=== PATIENT | male | born 1970 | race Caucasian/White ===

== ENCOUNTER 2017-05-31 12:49 | Inpatient (IN) | payer OTHER ==
[~2017-05-31] VITALS: Ht 177.8 cm; Wt 94.0 kg
[2017-05-31] VITALS (7 sets, daily range): BP systolic 140–146; BP diastolic 88–95; PULSE 62–92; RESP 18–25; TEMP 98.6; O2SAT 70–100
[~2017-05-31 12:49] MED LIST: DARV PO; PENI500T PO; Z.0.NO CURRENT MEDS
[2017-05-31] MEDS ORDERED: MORPHINE SULFATE 8 MG/ML INJ IV PUSH ONE ×2 (13:15→16:00)
[2017-05-31] MEDS ORDERED: ONDANSETRON HCL 4 MG/2 ML VIAL IV PUSH ONE (13:15)
--- NOTE | 2017-05-31 14:21 | RADRPT ---
EXAM DATE/TIME: 05/31/2017 14:00 [facility] COMPARISON: No previous studies available for comparison. INDICATIONS : Hit by tree limb and fell 13 feet today, pain in left shoulder, neck and back MEDICAL HISTORY : None. SURGICAL HISTORY : None. ENCOUNTER: Initial ACUITY: 1 day PAIN SCORE: 10/10 LOCATION: Left shoulder FINDINGS: Two view examination of the left shoulder demonstrates no evidence of fracture or dislocation. The g lenohumeral joint is maintained. A.c. separation and soft tissue swelling. Bony mineralization is no rmal. CONCLUSION: Soft tissue swelling with a.c. separation. Karson Watkins MD on May 31, 2017 at 14:20 Board Certified Radiologist. This report was verified electronically.
--- NOTE | 2017-05-31 15:49 | RADRPT ---
EXAM DATE/TIME: 05/31/2017 15:01 [facility] COMPARISON: No previous studies available for comparison. INDICATIONS : Back pain after trauma. MEDICAL HISTORY : None. SURGICAL HISTORY : Appendectomy. Colon resection. Right shoulder. ENCOUNTER: Subsequent ACUITY: 1 day PAIN SCORE: 6/10 LOCATION: Thoracic spine. TECHNIQUE: Multiplanar multisequence MRI of the thoracic spine was performed. FINDINGS: VERTEBRA: There is a subtle mild compression fracture deformity of the T9 vertebral body with slight height los s and patchy marrow edema. There is patchy marrow edema also noted in the T12 vertebral body which de monstrates normal vertebral body height. The other vertebral bodies are intact. There is no retropuls ion. ALIGNMENT: Normal. CORD: Normal position and configuration. T1-T2: The thecal sac has a normal diameter. No evidence of disc bulge or protrusion. T2-T3: The thecal sac has a normal diameter. No evidence of disc bulge or protrusion. There is edema involv ing the posterior left third rib with adjacent edema in the paraspinous soft tissue muscles. A small amount of pleural fluid. T3-T4: The thecal sac has a normal diameter. No evidence of disc bulge or protrusion. T4-T5: The thecal sac has a normal diameter. No evidence of disc bulge or protrusion. There is edema involv ing the posterior left fifth rib with adjacent edema in the paraspinous musculature. Small amount of adjacent pleural fluid. T5-T6: The thecal sac has a normal diameter. No evidence of disc bulge or protrusion. T6-T7: The thecal sac has a normal diameter. No evidence of disc bulge or protrusion. T7-T8: The thecal sac has a normal diameter. No evidence of disc bulge or protrusion. There is edema in the left posterior eighth rib. T8-T9: The thecal sac has a normal diameter. No evidence of disc bulge or protrusion. Diffuse patchy marrow edema is noted with distortion of the trabecular pattern. There is surrounding paraspinous soft tiss ue swelling. There is a fracture deformity with edema and fluid involving the left posterior ninth ri b. T9-T10: The thecal sac has a normal diameter. No evidence of disc bulge or protrusion. T10-T11: The thecal sac has a normal diameter. No evidence of disc bulge or protrusion. T11-T12: The thecal sac has a normal diameter. No evidence of disc bulge or protrusion. There is subtle marro w edema in the T12 vertebral body with no trabecular distortion or paraspinous soft tissue swelling. T12-L1: The thecal sac has a normal diameter. No evidence of disc bulge or protrusion. CONCLUSION: 1. Mild compression fracture deformity of the T9 vertebral body with trabecular distortion and diffus e patchy marrow edema. There is paraspinous soft tissue swelling. There is no definite retropulsion. Fracture of the posterior left, and ninth ribs with edema. 2. Subtle fracture deformity involving the T12 vertebral body with subtle marrow edema no cortical di stortion or paraspinous soft tissue swelling. 3. Multiple apparent left posterior rib fractures involving the third, fifth and eighth ribs with flip ma in the ribs and edema in the adjacent soft tissue musculature. A chest CT is recommended for furth er evaluation. Small amount of left pleural fluid. Kadeem Villanueva MD on May 31, 2017 at 15:35 Board Certified Radiologist. This report was verified electronically.
--- NOTE | 2017-05-31 15:58 | RADRPT ---
EXAM DATE/TIME: 05/31/2017 15:01 [facility] COMPARISON: No previous studies available for comparison. INDICATIONS : Trauma. MEDICAL HISTORY : None. SURGICAL HISTORY : Appendectomy. Colon resection. Right shoulder. ENCOUNTER: Subsequent ACUITY: 1 day PAIN SCORE: 6/10 LOCATION: neck TECHNIQUE: Multiplanar, multisequence MRI examination of the cervical spine was performed. FINDINGS: VERTEBRAE: Normal vertebral body height. Homogeneous marrow signal, with the exception of some chronic endplate changes at C5-6. Mild degenerative changes C5-6 and C6-7 levels. ALIGNMENT: No evidence of subluxation. CORD: Normal configuration and signal. POST FOSSA: The cerebellar tonsils are normal in position. C2-C3: The thecal sac has a normal configuration. There is no evidence of disc herniation or spinal canal s tenosis. The neural foramina are patent bilaterally. C3-C4: The thecal sac has a normal configuration. There is no evidence of disc herniation or spinal canal s tenosis. The neural foramina are patent bilaterally. C4-C5: The thecal sac has a normal configuration. There is no evidence of disc herniation or spinal canal s tenosis. The neural foramina are patent bilaterally. C5-C6: Mild broad-based disc bulge abuts the thecal sac without spinal canal stenosis. The neural foramina are patent bilaterally. C6-C7: Mild broad-based disc bulge abuts the thecal sac without spinal canal stenosis. The neural foramina are patent bilaterally. C7-T1: The thecal sac has a normal configuration. There is no evidence of disc herniation or spinal canal s tenosis. The neural foramina are patent bilaterally. CONCLUSION: 1. Mild disc bulges at C5-6 and C6-7 levels. 2. No compression deformity or spondylolisthesis. 3. Mild degenerative changes C5-6 and C6-7 levels. Karson Watkins MD on May 31, 2017 at 15:55 Board Certified Radiologist. This report was verified electronically.
--- NOTE | 2017-05-31 16:03 | PD ---
HPI Chief Complaint: Fall Time Seen by Provider: 13:07 Travel History International Travel<30 days: No Contact w/Intl Traveler<30days: No Traveled to known affect area: No History of Present Illness HPI This is a 46-year-old male who was sent here from [facility] as a trauma transfer. Patient was reportedly up on a elevated bucket truck cutting trees when he fell roughly 15 feet to the ground. He presented to [facility]. Upon workup, they found that he had left transverse process fractures of C7, T1, T2. He also had a small left-sided pneumothorax. Patient also had evidence of a T10 compression fracture and a left lateral flank/ abdominal wall contusion. There is no reported intra-abdominal pathology. There is no reported intrathoracic pathology other than the pneumothorax. Patient CT head showed questionable nondisplaced left zygomatic arch fracture. The patient denies any numbness or tingling of his extremities. He denies any weakness. He denies any urinary incontinence. PFS Past Medical History Medical History: Denies Significant Hx Diminished Hearing: No Past Surgical History Abdominal Surgery: Yes (LOWER COLON) Appendectomy: Yes Other Surgery: Yes (PART OF LOWER COLON AND INTESTINE REMOVED ) Social History Alcohol Use: Yes (6 BEERS A WEEK) Tobacco Use: Yes (1PPD) Substance Use: No Allergies-Medications (Allergen,Severity, Reaction): Coded Allergies: No Known Allergies (Verified Allergy, Unknown, 05/31/17) Reported Meds & Prescriptions Reported Meds & Active Scripts Active No Active Prescriptions or Reported Medications Review of Systems Except as stated in HPI: all other systems reviewed are Neg Eyes: No: Blurred Vision, Photophobia HENT: Positive: Neck Pain (Left lateral), Other (Left-sided cheek pain.), No: Headaches Cardiovascular: Positive: Chest Pain or Discomfort, No: Palpitations (Left upper chest wall pain) Respiratory: No: Cough, Shortness of Breath Gastrointestinal: No: Nausea, Vomiting, Abdominal Pain Genitourinary: No: Incontinence, Pelvic Pain Musculoskeletal: Positive: Pain (Left upper shoulder/lateral neck pain), No: Limited ROM, Weakness Neurologic: No: Dizziness, Headache Physical Exam Narrative GENERAL: Well-developed well-nourished male in C-spine immobilization. SKIN: Focused skin assessment warm/dry. HEAD: Atraumatic. Normocephalic. Abrasion to the left cheek. EYES: Pupils equal and round. No scleral icterus. No injection or drainage. ENT: No nasal bleeding or discharge. Mucous membranes pink and moist. NECK: Trachea midline. In c-collar mobilization. CARDIOVASCULAR: Regular rate and rhythm. No murmur appreciated. RESPIRATORY: No accessory muscle use. Clear to auscultation. Breath sounds equal bilaterally. GASTROINTESTINAL: Abdomen soft, nondistended. Patient had no pain on palpation. MUSCULOSKELETAL: No obvious deformities. No clubbing. No cyanosis. No edema. Patient has subjective tenderness in his superior left shoulder with radiation to his left lateral neck along the trapezius muscle distribution. NEUROLOGICAL: Awake and alert. No obvious cranial nerve deficits. Motor grossly within normal limits. Normal speech. PSYCHIATRIC: Appropriate mood and affect; insight and judgment normal. Data Data Last Documented VS Vital Signs Date Time Temp Pulse Resp B/P (MAP) Pulse Ox O2 Delivery O2 Flow Rate FiO2 05/31/17 13:17 66 18 94 Room Air 05/31/17 13:14 143/90 (107) Orders Orders Morphine Inj (Morphine Inj) (05/31/17 13:15) Ondansetron Inj (Zofran Inj) (05/31/17 13:15) Mri C Spine W/O Contrast (05/31/17 13:13) Mri T Spine W/O Contrast (05/31/17 13:13) Shoulder, Limited(2vws) (05/31/17 13:13) Admit Order (Ed Use Only) (05/31/17 15:54) Morphine Inj (Morphine Inj) (05/31/17 16:00) MDM Medical Screen Exam Complete: Yes Emergency Medical Condition: Yes Differential Diagnosis Unstable T-spine fracture versus unstable cervical spine fracture versus worsening pneumothorax Narrative Course 46-year-old male as a trauma transfer from [facility] and. Patient was in a bucket truck where he fell 10-15 feet on his side. Patient had no loss conscious. Patient has a reported left zygomatic arch nondisplaced fracture. Patient also has left C7, T1, T2 transverse process fractures. There is also report of T-spine fractures. MRI here shows T9 compression fracture with marrow edema. Also shows T12 compression fracture with marrow edema. There are multiple left-sided rib fractures. There is no obvious pneumothorax noted. The patient will be admitted to the trauma service. Case was discussed with Dr. Marcelino, who is come to see the patient. Patient's also been discussed with Dr. Franky Araiza, and Dr. Dexter Gonzalez. Critical Care Narrative Aggregate critical care time was 45 minutes. Time to perform other separately billable procedures was not included in the critical care time. My time did not include minutes spent treating any other patients simultaneously or on activities that did not directly contribute to the patient's treatment. The services I provided to this patient were to treat and/or prevent clinically significant deterioration that could result in: I provided critical care services requiring my management, as noted below: Chart data review, documentation time, medication orders and management, vital sign assessments/reviewing monitor data, ordering and reviewing lab tests, ordering and interpreting/reviewing x-rays and diagnostic studies, care of the patient and discussion of the patient with the admitting physicians. Diagnosis Diagnosis: Primary Impression: Left C7, T1, T2 fracture transverse process fracture Additional Impressions: Separation of left acromioclavicular joint Multiple left-sided rib fractures. Traumatic compression fracture of T9 thoracic vertebra T12 compression fracture Left nondisplaced zygomatic arch fracture Admitting Physician Requests: Admit Scripts No Active Prescriptions or Reported Meds Issa Ahumada MD May 31, 2017 16:03
--- NOTE | 2017-05-31 17:42 | PD.CONS ---
HPI Service Critical Care Medicine Consult Requested By Trauma Service Reason for Consult management of hemodynamics and pulmonary mechanics Primary Care Physician No Primary Care Physician History of Present Illness 46yM fell from approximately 15 ft height. initially taken to OSH where reported injuries included small PTX, TP fractures of C7, T1, T2. transferred to our facility as receiving trauma center. Here he has MRI evidence of T9 burst fracture. Patient CT head showed questionable nondisplaced left zygomatic arch fracture. The patient denies any numbness or tingling of his extremities. He denies any weakness. He denies any urinary incontinence. Review of Systems Constitutional: DENIES: Fever, Chills Respiratory: DENIES: Cough, Wheezing, Sputum production, Shortness of breath Cardiovascular: COMPLAINS OF: Chest pain, DENIES: Palpitations, Syncope, Dyspnea on Exertion, Lower Extremity Edema Gastrointestinal: DENIES: Abdominal pain, Constipation, Diarrhea, Nausea, Vomiting Musculoskeletal: COMPLAINS OF: Back pain, DENIES: Muscle aches, Neck pain Hematologic/lymphatic: DENIES: Bruising Neurologic: DENIES: Abnormal gait, Headache, Localized weakness ROS chest pain over area of rib fractures Past Family Social History Allergies: Coded Allergies: No Known Allergies (Verified Adverse Reaction, Unknown, 05/31/17) Past Medical History Denies significant past medical history. Past Surgical History part of lower colon removed appendectomy Reported Medications No Active Prescriptions or Reported Medications Active Ordered Medications See MAR Family History reviewed and found to be noncontributory to his acute illness Social History 1ppd smoker, 6 beers/wk. Physical Exam Vital Signs Vital Signs Date Time Temp Pulse Resp B/P (MAP) Pulse Ox O2 Delivery O2 Flow Rate FiO2 05/31/17 16:06 92 18 140/95 (110) 96 Room Air 05/31/17 13:17 66 18 94 Room Air 05/31/17 13:14 68 18 143/90 (107) 96 Physical Exam gen: middle-aged male, lying in bed, in distress due to pain heent: perrl.mmm. nc. at. neck: c-collar in place. chest: equal chest rise. splinting due to pain. room air. cv: normal rate, regular rhythm. sinus by tele. abd: soft, nontender, nondistended, no guarding. extr: distal pulses 2+. no edema. neuro: RASS 0. GCS 15. neuro intact. JEREMIAH 5/5 b/l upper and lower extremities. Imaging Last Impressions Thoracic Spine MRI 05/31/173 Signed Impressions: Service Date/Time: Wednesday, May 31, 2017 15:01 - CONCLUSION: 1. Mild compression fracture deformity of the T9 vertebral body with trabecular distortion and diffuse patchy marrow edema. There is paraspinous soft tissue swelling. There is no definite retropulsion. Fracture of the posterior left, and ninth ribs with edema. 2. Subtle fracture deformity involving the T12 vertebral body with subtle marrow edema no cortical distortion or paraspinous soft tissue swelling. 3. Multiple apparent left posterior rib fractures involving the third , fifth and eighth ribs with edema in the ribs and edema in the adjacent soft tissue musculature. A chest CT is recommended for further evaluation. Small amount of left pleural fluid. Kadeem Villanueva MD Shoulder X-Ray 05/31/171312 Signed Impressions: Service Date/Time: Wednesday, May 31, 2017 14:00 - CONCLUSION: Soft tissue swelling with a.c. separation. Karson Watkins MD Assessment and Plan Assessment and Plan Assessment: 46yM s/p fall from 15 feet with multiple rib fractures and t9 compression fracture. watch closely in ICU and adequate pain control. s/p Fall from 15 feet multiple right sided rib fractures t9 compression fracture acute pain associated with traumatic injuries - iv and po pain control - nsgy consultation - aggressive pulmonary toilet. - thoracic spine injuries are currently a relative contra-indication for neuraxial pain management - admit to ICU - diet after cleared by nsgy - SCDs Critical care medicine will follow along with the trauma service as long as patient remains in the ICU. Dennis Sidhu MD May 31, 2017 17:42
[2017-05-31] MEDS: HYDROmorphone HCL PF 2 MG/ML VIAL IV PUSH PRN ×2 (18:40→22:05)
--- NOTE | 2017-05-31 19:32 | RADRPT ---
EXAM DATE/TIME: 05/31/2017 19:08 [facility] COMPARISON: MRI THORACIC SPINE W/O CONTRAST, May 31, 2017, 15:01. INDICATIONS : Neck pain due to fall. RADIATION DOSE: 24.93 CTDIvol (mGy) MEDICAL HISTORY : None SURGICAL HISTORY : Appendectomy. Colon resection. ENCOUNTER: Initial ACUITY: 1 day PAIN SCALE: 8/10 LOCATION: Bilateral neck region. TECHNIQUE: Volumetric scanning of the cervical spine was performed. Multiplanar reconstructions in the sagittal, coronal and oblique axial planes were performed. Using automated exposure control and adjustment o f the mA and/or kV according to patient size, radiation dose was kept as low as reasonably achievable to obtain optimal diagnostic quality images. DICOM format image data is available electronically f or review and comparison. FINDINGS: Sagittal images demonstrate normal vertebral body alignment and curvature. The odontoid is intact. Th e occipital condyles and lateral masses of C1 are intact. Axial images were performed from C2-C3 to C7-T1. There is multilevel disc space narrowing and marginal osteophyte formation maximal at C5-C6. There findings characteristic of old spinous process fracture at C7. C2-C3: No significant abnormalities identified. C3-C4: No significant abnormalities identified. C4-C5: No significant abnormalities identified. C5-C6: There is uncovertebral joint hypertrophy on the right side. There is no significant spinal canal sten osis. C6-C7: There is osteophytic ridging along the posterior aspect of vertebral body. There is mild annular bulg e of the disc. There is no significant spinal canal stenosis. C7-T1: No significant abnormalities identified. CONCLUSION: 1. Mild degenerative changes as described above. 2. Old spinous process fracture C7 Keon Phillips MD on May 31, 2017 at 19:27 Board Certified Radiologist. This report was verified electronically.
--- NOTE | 2017-05-31 20:10 | RADRPT ---
EXAM DATE/TIME: 05/31/2017 19:16 [facility] COMPARISON: No previous studies available for comparison. INDICATIONS : Mid back pain due to fall, possible T9 fracture. RADIATION DOSE: 37.81 CTDIvol (mGy) MEDICAL HISTORY : None SURGICAL HISTORY : Appendectomy. Colon resection. ENCOUNTER: Initial ACUITY: 1 day PAIN SCALE: 10/10 LOCATION: Bilateral mid back pain TECHNIQUE: Volumetric scanning of the thoracic spine was performed. Multiplanar reconstructions in the sagittal , coronal and oblique axial planes were performed. Using automated exposure control and adjustment o f the mA and/or kV according to patient size, radiation dose was kept as low as reasonably achievable to obtain optimal diagnostic quality images. DICOM format image data is available electronically f or review and comparison. FINDINGS: FINDINGS: Sagittal images demonstrate normal vertebral body alignment and curvature. No fractures identified. A xial images performed from T1-T2 through T12-L1. There is multilevel disc space narrowing and margina l osteophyte formation maximal at T10-T11. There is a linear sclerotic line in the T9 vertebral body where marrow edema is identified on the MRI where marrow edema is present. There are fractures of the transverse processes nondisplaced on the left at T1-T7 with slight displacement at the T6 level. T1-T2: No significant abnormalities identified. T2-T3: No significant abnormalities identified. T3-T4: No significant abnormalities identified. T4-T5: No significant abnormalities identified. T5-T6: No significant abnormalities identified. T6-T7: No significant abnormalities identified. T7-T8: No significant abnormalities identified. T8-T9: There is mild annular bulge of the disc. There is no significant spinal canal stenosis. T9-T10: There is mild diffuse annular bulge of the disc. The neural foramina are clear bilaterally. There is no significant spinal canal stenosis. T10-T11: There is mild annular bulge of the disc. There is mild facet arthritis bilaterally. T11-T12: There is no evidence of disc protrusion or spinal canal stenosis. T12-L1: There is no evidence of disc protrusion or spinal canal stenosis. CONCLUSION: 1. Transverse process fractures from T1-T7 on the left. 2. Slight sclerosis in the T9 vertebral body corresponding to the marrow edema seen on MRI without ev idence of retropulsion. Keon Phillips MD on May 31, 2017 at 19:51 Board Certified Radiologist. This report was verified electronically.
[2017-05-31] MEDS ORDERED: MAGNESIUM HYDROXIDE SUSP 30 ML CUP PO PRN (20:30)
[2017-05-31] MEDS ORDERED: CHLORHEXIDINE GLUCONATE 2 % 1 PACK (2 CLOTHS) TOP PRN (20:30)
[2017-05-31] MEDS ORDERED: ONDANSETRON HCL 4 MG/2 ML VIAL IV PUSH PRN (20:30)
[2017-05-31] MEDS ORDERED: MISCELLANEOUS NURSING INFORMATION XX SCH (20:30)
[2017-05-31] MEDS ORDERED: ENALAPRILAT 1.25 MG/ML VIAL IV PUSH PRN (20:30)
--- NOTE | 2017-05-31 20:49 | MB ---
cc: Franky Araiza MD, Rohit K MD DATE OF CONSULT: 05/31/2017 REASON FOR CONSULTATION Thoracic spine fracture. 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 He states he hit his head but denies loss of consciousness. His main complaint is lower cervical/thoracic area pain and lower thoracic level pain, but more significant left anterior chest wall and left shoulder area pain. He denies any numbness or paresthesias in the upper or lower extremities. He was initially taken to [facility] in [place] and a CT scan of the head obtained was negative for any intracranial injury with a nondisplaced left zygomatic arch fracture. He was also found to have left C7, T1 and T2 transverse process fractures with a maintained alignment of the cervicothoracic spine. On the CT of the chest, he was noted to have some thoracic vertebral fractures along with pneumothorax and was transferred to [facility] trauma surgery service for further management and the neurosurgery service has been consulted for the thoracic fractures. He denies any shortness of breath. PAST MEDICAL HISTORY 1. Appendectomy. 2. Partial colectomy. MEDICATIONS None. ALLERGIES NO KNOWN DRUG ALLERGIES. SOCIAL HISTORY He admits to smoking a pack of cigarettes a day and drinks about 6 beers a week. He is and resides in [place]. REVIEW OF SYSTEMS Positive for left anterior chest wall pain and left shoulder pain, lower cervicothoracic area pain, lower thoracic area back pain. No numbness or paresthesia of the upper or lower extremities. No nausea, vomiting, double vision or blurred vision. No shortness of breath. No abdominal pain. No fevers or chills. No recent weight gain or weight loss. No incontinence. Otherwise, review of systems is negative for the rest of the systems. LABORATORY DATA White blood cell count 12.9, hemoglobin 15.1, platelet count 218. Sodium 139, potassium 3.6, BUN 8, creatinine 0.89, glucose 119. Toxicology screen positive for cocaine, cannabinoids, alcohol at 133 and benzodiazepines. FAMILY HISTORY Unremarkable. No history of cancer or coronary artery disease in the family. PHYSICAL EXAMINATION VITAL SIGNS: Pulse is 74, respiratory rate 18, blood pressure 141/88, oxygen saturation is 94% on room air. HEAD: He has a left facial abrasion. No Valente's or raccoon sign. NECK: Immobilized in a [place] collar. CHEST: Clear to auscultation bilaterally. HEART: Regular rate and rhythm. Normal S1, S2. No murmurs. ABDOMEN: Soft, nontender, nondistended. No hepatosplenomegaly. EXTREMITIES: No cyanosis, edema or deformity, although complains of left shoulder area and chest wall pain with left arm movement. SKIN: Facial abrasion but no pustules or rashes noted in the upper or lower extremities. GENERAL: This is a middle aged gentleman lying in the stretcher in the Emergency Room in no acute distress. EYES: No conjunctival or scleral icterus or any hemorrhage noted. Good extraocular motility. NEUROLOGIC: He is awake, alert. He is oriented x3. Pupils are equal and reactive. Extraocular muscles are intact. Face is symmetric. Tongue is midline. He moves upper and lower extremities with good strength. Negative Babinski. Speech is fluent. Light touch sensation is intact bilaterally. IMAGING STUDIES On the MRI scan of the cervical and thoracic spine, he has some degenerative changes and disk protrusions without any significant stenosis. There does appear to be a mild compression fracture of the T9 vertebral body as well as a subtle fracture of the T12 vertebral body with some marrow edema, but no cortical disruption is noted. There is no associated stenosis. He does appear to have multiple left posterior rib fractures and a small pleural effusion. IMPRESSION 1. Mild compression fracture along the T9 vertebral body as well as ____ fracture at T12 vertebral body without any retropulsion. 2. Left C7, T1 and T2 transverse process fractures. 3. Left multiple rib fractures with possible small pneumothorax/pleural effusion. 4. Polysubstance abuse. PLAN The patient does not require any neurosurgical intervention at this point. I recommended a TLSO brace for his T9 and T12 fractures along with CT scan to further evaluate these fractures. The transverse process fractures involving the C7-T2 levels are stable injuries and do not require any intervention either. Once the TLSO brace is available, his activity status can be increased as tolerated. I recommend gastrointestinal stress ulcer prophylaxis along with deep vein thrombosis prophylaxis. I discussed with emergency room physician, Dr. Ahumada. Franky K. Jose G, MD RKK//alecia , 07:24 PM , 08:25 PM
[2017-05-31] MEDS: SODIUM CHLOR 0.9% 1000 ML INJ 1,000 ML IV SCH (20:59)
[2017-05-31] MEDS ORDERED: DOCUSATE SODIUM 100 MG CAP PO SCH (21:00)
[2017-05-31] MEDS ORDERED: PANTOPRAZOLE SODIUM 40 MG VIAL IVP SCH (21:00)
[2017-06-01] VITALS (12 sets, daily range): BP systolic 118–141; BP diastolic 69–88; PULSE 64–79; RESP 18–23; TEMP 98.1–98.6; O2SAT 95–100
[2017-06-01] MEDS: HYDROmorphone HCL PF 2 MG/ML VIAL IV PUSH PRN ×3 (01:06→07:31)
[2017-06-01] MEDS: CHLORHEXIDINE GLUCONATE 2 % 1 PACK (2 CLOTHS) TOP SCH (04:00)
[2017-06-01 05:06] LABS: AUTOMATED NEUTROPHIL # 5.6 TH/MM3 (1.8-7.7); BASOPHIL % 0.6 % (0.0-2.0); EOSINOPHIL # 0.3 TH/MM3 (0-0.4); EOSINOPHIL % 3.9 % (0.0-4.0); HEMATOCRIT 43.6 % (39.0-51.0); HEMOGLOBIN 15.1 GM/DL (13.0-17.0); LYMPH % 16.4 % (9.0-44.0); LYMPHOCYTE # 1.3 TH/MM3 (1.0-4.8); MEAN CELL VOLUME 90.6 FL (80.0-100.0); MEAN CORPUSCULAR HEMOGLOBIN 31.5 PG (27.0-34.0); MEAN CORPUSCULAR HGB CONC 34.8 % (32.0-36.0); MONO % 6.7 % (0.0-8.0); MONOCYTE # 0.5 TH/MM3 (0-0.9); NEUT % 72.4 % (16.0-70.0); PLATELET COUNT 154 TH/MM3 (150-450); RED BLOOD COUNT 4.81 MIL/MM3 (4.50-5.90); RED CELL DISTRIBUTION WIDTH 13.9 % (11.6-17.2); WHITE BLOOD COUNT 7.7 TH/MM3 (4.0-11.0)
[2017-06-01 05:12] LABS: ALBUMIN 3.3 GM/DL (3.4-5.0); AST (GOT) 111 U/L (15-37); BICARBONATE 30.3 MEQ/L (21.0-32.0); BLOOD UREA NITROGEN 7 MG/DL (7-18); CHLORIDE 105 MEQ/L (98-107); CREATININE 0.85 MG/DL (0.60-1.30); GLOMERULAR FILTRATION RATE 97 ML/MIN (>89); GLUCOSE,RANDOM 88 MG/DL (74-106); SODIUM (NA) 139 MEQ/L (136-145)
[2017-06-01 05:14] LABS: ALT (GPT) 80 U/L (12-78)
[2017-06-01 05:16] LABS: ALKALINE PHOSPHATASE 88 U/L (45-117); TOTAL BILIRUBIN ADULT 0.9 MG/DL (0.2-1.0); TOTAL PROTEIN 6.4 GM/DL (6.4-8.2)
[2017-06-01] MEDS ORDERED: LACTULOSE SYRUP 20 GM/30 ML CUP PO PRN (08:00)
[2017-06-01] MEDS: SODIUM CHLOR 0.9% 1000 ML INJ 1,000 ML IV SCH (08:16)
[2017-06-01] MEDS: METHOCARBAMOL 500 MG TAB PO SCH ×3 (08:16→20:29)
[2017-06-01] MEDS: LIDOCAINE HCL 5% PATCH T-DERMAL SCH (08:16)
[2017-06-01] MEDS: DOCUSATE SODIUM 50 MG/SENNA 8.6 MG TAB PO SCH ×3 (08:16→21:00)
[2017-06-01] MEDS: ACETAMINOPHEN 1000 MG/100 ML 100 ML IV SCH ×3 (08:16→20:29)
[2017-06-01] MEDS: RESP: ALBUTEROL 2.5 MG/IPRATROPIUM 0.5 MG NEB (SCH) NEB ×4 (08:27→19:57)
--- NOTE | 2017-06-01 08:40 | RADRPT ---
EXAM DATE/TIME: 06/01/2017 07:54 [facility] COMPARISON: No previous studies available for comparison. INDICATIONS : Evaluate lung status. Chest and back pain after fall. Multiple transverse process fractures. MEDICAL HISTORY : None. SURGICAL HISTORY : Appendectomy. Colon resection. Right shoulder. ENCOUNTER: Subsequent ACUITY: 2 days PAIN SCORE: 7/10 LOCATION: Bilateral chest FINDINGS: A single AP portable semierect view of the chest was obtained and demonstrates left apical pleural-pa renchymal change. No confluent infiltrates or effusions are identified. The cardiomediastinal contour s are unremarkable. Osseous structures appear intact. The known transverse fractures on the left are not well-visualized. CONCLUSION: Left apical pleural-parenchymal change which could indicate fluid or thickening. Kadeem Villanueva MD on June 01, 2017 at 8:24 Board Certified Radiologist. This report was verified electronically.
--- NOTE | 2017-06-01 10:55 | HHI.CCPN ---
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 Initially taken to [facility] where reported injuries included small PTX, TP fractures of C7, T1, T2. transferred to our facility as receiving trauma center. Here he has MRI evidence of T9 compression fracture. Patient CT head showed questionable nondisplaced left zygomatic arch fracture. The patient denies any numbness or tingling of his extremities. He denies any weakness. He denies any urinary incontinence. 06/01: Breathing comfortably. Normotensive. Airway widely patent. He received blunt trauma to his back and left torso and head. The left shoulder AC joint is . There are references to left sided rib fractures however I do not see this on the films. Objective Vital Signs Date Time Temp Pulse Resp B/P (MAP) Pulse Ox O2 Delivery O2 Flow Rate FiO2 06/01/17 08:28 97 Nasal Cannula 2.00 06/01/17 08:00 98.5 68 23 141/88 (105) Intake and Output 06/01/17 06/01/17 06/02/17 08:00 16:00 00:00 Intake Total 778 ml 1287 ml Output Total 1100 ml Balance -322 ml 1287 ml Result Diagram: 06/01/17 0328 06/01/17 0328 Imaging Last Impressions Thoracic Spine MRI 05/31/173 Signed Impressions: Service Date/Time: Wednesday, May 31, 2017 15:01 - CONCLUSION: 1. Mild compression fracture deformity of the T9 vertebral body with trabecular distortion and diffuse patchy marrow edema. There is paraspinous soft tissue swelling. There is no definite retropulsion. Fracture of the posterior left, and ninth ribs with edema. 2. Subtle fracture deformity involving the T12 vertebral body with subtle marrow edema no cortical distortion or paraspinous soft tissue swelling. 3. Multiple apparent left posterior rib fractures involving the third , fifth and eighth ribs with edema in the ribs and edema in the adjacent soft tissue musculature. A chest CT is recommended for further evaluation. Small amount of left pleural fluid. Kadeem Villanueva MD Shoulder X-Ray 05/31/17 1313 Signed Impressions: Service Date/Time: Wednesday, May 31, 2017 14:00 - CONCLUSION: Soft tissue swelling with a.c. separation. Karson Watkins MD Objective Remarks gen: middle-aged male, lying in bed, some pain expressed heent: perrl.3mm pupils, reactive. nc. at. neck: c-collar in place. airway patent. chest: equal chest rise. splinting due to pain. room air. cv: normal rate, regular rhythm. sinus by tele. no JVD. abd: soft, nontender, nondistended, no guarding. extr: distal pulses 2+. no edema. neuro: RASS 0. GCS 15. neuromotor function grossly intact. JEREMIAH 5/5 b/l upper and lower extremities. A/P Assessment and Plan Assessment: 46yM s/p fall from 13 - 15 feet with multiple rib fractures and t9 compression fracture. watch closely in ICU, continued tertiary survey and adequate pain control. s/p Fall from 15 feet multiple right sided rib fractures t9 compression fracture acute pain associated with traumatic injuries - iv and po pain control - nsgy consultation - aggressive pulmonary toilet. - thoracic spine injuries are currently a relative contra-indication for neuraxial pain management - admit to ICU - diet after cleared by nsgy - SCDs Critical care medicine will follow along with the trauma service as long as patient remains in the ICU. Issa Palacios MD Jun 01, 2017 10:55
--- NOTE | 2017-06-01 14:58 | HHI.CCPN ---
Subjective Brief History History of Present Illness 46yM fell from approximately 15 ft height. Patient initially transfer to another hospital and then came to us as a transfer to trauma center Arrival patient is awake and alert and oriented Injuries include C7 transverse process fracture T1 and T2 transverse process fracture T9 corporal burst fracture Left rib fractures with small hemopneumothorax Pulmonary contusion Left shoulder separation with fracture of the clavicle and acromion Patient was evaluated by trauma surgeon neurosurgeon and medical mortgage servicing specialist and placed in the unit for observation 24 Hour Review/Hospital Course 06/01/2017 Patient is awake alert and oriented Neurologically fully intact complaining about pain in the lower back Bilateral good breath sounds and good pulmonary expansion Chest x-ray does not reveal any residual pneumothorax left Abdomen soft active bowel sounds no masses no rebound or guarding no signs of abdominal trauma Pelvis is stable Objective Vital Signs Date Time Temp Pulse Resp B/P (MAP) Pulse Ox O2 Delivery O2 Flow Rate FiO2 06/01/17 12:29 97 Nasal Cannula 3.00 06/01/17 12:00 79 06/01/17 12:00 98.6 20 128/76 (93) Intake and Output 06/01/17 06/01/17 06/02/17 08:00 16:00 00:00 Intake Total 778 ml 1387 ml Output Total 1100 ml Balance -322 ml 1387 ml Result Diagram: 06/01/17 0328 06/01/17 0328 Imaging Last 24 hours Impressions Chest X-Ray 06/01/17 0000 Signed Impressions: Service Date/Time: Thursday, June 01, 2017 07:54 - CONCLUSION: Left apical pleural-parenchymal change which could indicate fluid or thickening. Kadeem Villanueva MD Cervical Spine CT 05/31/17 1827 Signed Impressions: Service Date/Time: Wednesday, May 31, 2017 19:08 - CONCLUSION: 1. Mild degenerative changes as described above. 2. Old spinous process fracture C7 Keon Phillips MD Assessment and Plan Attestation Patient does not require ICU care but was placed in the ICU settings due to lack of beds on the floor so critical care time will not be charged Transfer to floor C-collar and TLSO brace Patient will be discharged to home tomorrow Alex Bedoya MD Jun 01, 2017 14:58
--- NOTE | 2017-06-01 18:42 | HHI.NSPN ---
(Karson Hoover) History Chief Complaint: thoracic spine pain. 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 He states he hit his head but denies loss of consciousness. His main complaint is lower cervical/thoracic area pain and lower thoracic level pain, but more significant left anterior chest wall and left shoulder area pain. He denies any numbness or paresthesias in the upper or lower extremities. He was initially taken to [facility] in [place] and a CT scan of the head obtained was negative for any intracranial injury with a nondisplaced left zygomatic arch fracture. He was also found to have left C7, T1 and T2 transverse process fractures with a maintained alignment of the cervicothoracic spine. On the CT of the chest, he was noted to have some thoracic vertebral fractures along with pneumothorax and was transferred to [facility] trauma surgery service for further management and the neurosurgery service has been consulted for the thoracic fractures. He denies any shortness of breath. 06/01/17: Pt complains of thoracic pain and left rib pain but controlled with current medications. He is being compliant with his TLSO brace. (Karson Hoover) Review of Systems General: Negative for: fever, chills, insomnia Respiratory: Negative for: shortness of breath, cough, sputum Cardiovascular: Negative for: chest pain, palpitations, orthopnea Gastrointestinal: Positive for: nausea, vomitting (Pt had earlier today but better now.), Negative for: diarrhea, constipation (Karson Hoover) Exam Results Vital Signs Date Time Temp Pulse Resp B/P (MAP) Pulse Ox O2 Delivery O2 Flow Rate FiO2 06/01/17 16:29 100 21 06/01/17 16:00 98.6 64 18 118/69 (85) 06/01/17 12:29 Nasal Cannula 3.00 Intake and Output 06/01/17 06/01/17 06/02/17 08:00 16:00 00:00 Intake Total 778 ml 1387 ml Output Total 1100 ml Balance -322 ml 1387 ml (Karson Hoover) Physical Examination General: Pt resting comfortably in bed with TLSO brace on. Eyes: Pupils equal sclera anicteric. Resp: CTA bilaterally. Heart: NSR no murmurs Abd: TLSO brace on sitting up. Skin: No cyanosis or erythema Muscle: Moves all 4 extremities with good strength. Sitting up with TLSO brace on. Neuro: Pt awake and alert. Follows commands well. Speech clear and appropriate. Sensation intact in extremities. (Karson Hoover) Lab, Micro, Other Results Last Impressions Chest X-Ray 06/01/17 0000 Signed Impressions: Service Date/Time: Thursday, June 01, 2017 07:54 - CONCLUSION: Left apical pleural-parenchymal change which could indicate fluid or thickening. Kadeem Villanueva MD Cervical Spine CT 05/31/[id number] Signed Impressions: Service Date/Time: Wednesday, May 31, 2017 19:08 - CONCLUSION: 1. Mild degenerative changes as described above. 2. Old spinous process fracture C7 Keon Phillips MD Thoracic Spine MRI 05/31/173 Signed Impressions: Service Date/Time: Wednesday, May 31, 2017 15:01 - CONCLUSION: 1. Mild compression fracture deformity of the T9 vertebral body with trabecular distortion and diffuse patchy marrow edema. There is paraspinous soft tissue swelling. There is no definite retropulsion. Fracture of the posterior left, and ninth ribs with edema. 2. Subtle fracture deformity involving the T12 vertebral body with subtle marrow edema no cortical distortion or paraspinous soft tissue swelling. 3. Multiple apparent left posterior rib fractures involving the third , fifth and eighth ribs with edema in the ribs and edema in the adjacent soft tissue musculature. A chest CT is recommended for further evaluation. Small amount of left pleural fluid. Kadeem Villanueva MD Shoulder X-Ray 05/31/173 Signed Impressions: Service Date/Time: Wednesday, May 31, 2017 14:00 - CONCLUSION: Soft tissue swelling with a.c. separation. Karson Watkins MD Cervical Spine MRI 05/31/[id number] Signed Impressions: Service Date/Time: Wednesday, May 31, 2017 15:01 - CONCLUSION: 1. Mild disc bulges at C5-6 and C6-7 levels. 2. No compression deformity or spondylolisthesis. 3. Mild degenerative changes C5-6 and C6-7 levels. Karson Watkins MD Thoracic Spine CT 05/31/17 0000 Signed Impressions: Service Date/Time: Wednesday, May 31, 2017 19:16 - CONCLUSION: 1. Transverse process fractures from T1-T7 on the left. 2. Slight sclerosis in the T9 vertebral body corresponding to the marrow edema seen on MRI without evidence of retropulsion. Keon Phillips MD Laboratory Tests Test 05/31/17 20:51 06/01/17 03:28 Nasal Screen MRSA (PCR) MRSA NOT DETECTED White Blood Count 7.7 TH/MM3 Red Blood Count 4.81 MIL/MM3 Hemoglobin 15.1 GM/DL Hematocrit 43.6 % Mean Corpuscular Volume 90.6 FL Mean Corpuscular Hemoglobin 31.5 PG Mean Corpuscular Hemoglobin Concent 34.8 % Red Cell Distribution Width 13.9 % Platelet Count 154 TH/MM3 Mean Platelet Volume 9.0 FL Neutrophils (%) (Auto) 72.4 % Lymphocytes (%) (Auto) 16.4 % Monocytes (%) (Auto) 6.7 % Eosinophils (%) (Auto) 3.9 % Basophils (%) (Auto) 0.6 % Neutrophils # (Auto) 5.6 TH/MM3 Lymphocytes # (Auto) 1.3 TH/MM3 Monocytes # (Auto) 0.5 TH/MM3 Eosinophils # (Auto) 0.3 TH/MM3 Basophils # (Auto) 0.0 TH/MM3 CBC Comment DIFF FINAL Differential Comment Blood Urea Nitrogen 7 MG/DL Creatinine 0.85 MG/DL Random Glucose 88 MG/DL Total Protein 6.4 GM/DL Albumin 3.3 GM/DL Calcium Level 8.0 MG/DL Alkaline Phosphatase 88 U/L Aspartate Amino Transf (AST/SGOT) 111 U/L Alanine Aminotransferase (ALT/SGPT) 80 U/L Total Bilirubin 0.9 MG/DL Sodium Level 139 MEQ/L Potassium Level 3.8 MEQ/L Chloride Level 105 MEQ/L Carbon Dioxide Level 30.3 MEQ/L Anion Gap 4 MEQ/L Estimat Glomerular Filtration Rate 97 ML/MIN 2/06/01/17 06/02/17 15:00 23:00 07:00 Intake Total 1387 ml Balance 1387 ml Intake IV Total 1387 ml # Voids 3 # Bowel Movements 0 (Karson Hoover) Medical Decision Making Impression and Plan 1. Mild compression fracture along the T9 vertebral body as well as T12 vertebral body without any retropulsion. 2. Left C7, T1 and T2 transverse process fractures. 3. Left multiple rib fractures with possible small pneumothorax/pleural effusion. 4. Polysubstance abuse. PLAN The patient does not require any neurosurgical intervention at this point. Continue with TLSO brace for his T9 and T12 fractures The transverse process fractures involving the C7-T2 levels are stable injuries and do not require any intervention either. OOB with PT with brace on prior to sitting. (Karson Hoover) Attending Statement The exam, history, and the medical decision-making described in the above note were completed with the assistance of the mid-level provider. I reviewed and agree with the findings presented. I attest that I had a [id number] encounter with the patient on the same day, and personally performed and documented my assessment and findings in the medical record. (Franky Araiza MD) Karson Hoover Jun 01, 2017 18:42 Franky Araiza MD Jun 02, 2017 13:47
--- NOTE | 2017-06-01 19:39 | MB ---
cc: Giovani Vernon MD DATE OF CONSULT: 06/01/2017 REASON FOR CONSULTATION: Requested to evaluate left shoulder acromioclavicular separation following trauma. HISTORY OF PRESENT ILLNESS: Chip Stoner is a 46-year-old male who sustained a fall of approximately 15 feet. He states that he was helping a friend. This is not officially a work-related injury. He was transferred from [facility] in [place], to the trauma service. He was found to have a transverse process fractures of his cervical spine/C7 as well as T1 and T2. He had a left-sided pneumothorax. He had a T10 compression fracture and he had complaints of pain about the left shoulder. Left shoulder x-rays revealed separation of the AC joint. He was admitted to trauma service with consult placed to the undersigned. PAST MEDICAL HISTORY Significant for prior partial colonic and intestinal excision as well as appendectomy. He denies other active medical problems. SOCIAL HISTORY: Positive for tobacco and alcohol use. ALLERGIES HE HAS NO KNOWN DRUG ALLERGIES. PHYSICAL EXAMINATION: Patient is alert, oriented, appropriate. He has a specialized thoracic brace in place. He has good motion of the right shoulder, nontender. He has chest wall tenderness on the left. He has tenderness at the acromioclavicular joint on the left. The sternoclavicular joint is nontender. He has good passive range of motion of the left shoulder. No evidence of neurologic deficit of the left upper extremity. Elbow and wrist range of motion full. Distal pulse intact. Distal motor sensation, neurologic examination intact. X-rays are reviewed. ASSESSMENT: Multiple trauma with left pneumothorax, rib fractures, spine fractures and acromioclavicular separation. MEDICAL DECISION-MAKING: His condition was discussed. Options and treatment were discussed. The recommendation is nonoperative care for the shoulder. Long-term management, sometimes requires surgery; but this is unlikely based on the current alignment. We talked about the option of a sling, however, he is doing reasonably well without the sling and he has this brace on his back so I think as long as he keeps his hand down low, he is okay to go without the sling. I will check in on him over the next several days and see how he is doing. All of his questions were answered. MD AFIA Perez/IMAN , 07:06 PM , 07:37 PM
[2017-06-01] MEDS: MORPHINE SULFATE 4 MG/ML INJ IV PUSH PRN (20:29)
[2017-06-02] VITALS (7 sets, daily range): BP systolic 122–143; BP diastolic 66–86; PULSE 71–98; RESP 16–20; TEMP 97.4–98.2; O2SAT 93–100
[2017-06-02] MEDS: CHLORHEXIDINE GLUCONATE 2 % 1 PACK (2 CLOTHS) TOP SCH (00:41)
[2017-06-02] MEDS: ACETAMINOPHEN 1000 MG/100 ML 100 ML IV SCH (02:53)
[2017-06-02 05:02] LABS: AUTOMATED NEUTROPHIL # 3.8 TH/MM3 (1.8-7.7); BASOPHIL % 0.5 % (0.0-2.0); EOSINOPHIL # 0.3 TH/MM3 (0-0.4); EOSINOPHIL % 4.5 % (0.0-4.0); HEMATOCRIT 40.3 % (39.0-51.0); HEMOGLOBIN 13.9 GM/DL (13.0-17.0); LYMPH % 23.2 % (9.0-44.0); LYMPHOCYTE # 1.4 TH/MM3 (1.0-4.8); MEAN CELL VOLUME 89.9 FL (80.0-100.0); MEAN CORPUSCULAR HEMOGLOBIN 30.9 PG (27.0-34.0); MEAN CORPUSCULAR HGB CONC 34.4 % (32.0-36.0); MEAN PLATELET VOLUME 8.7 FL (7.0-11.0); MONO % 7.6 % (0.0-8.0); MONOCYTE # 0.4 TH/MM3 (0-0.9); NEUT % 64.2 % (16.0-70.0); PLATELET COUNT 142 TH/MM3 (150-450); RED BLOOD COUNT 4.49 MIL/MM3 (4.50-5.90); RED CELL DISTRIBUTION WIDTH 13.6 % (11.6-17.2); WHITE BLOOD COUNT 5.9 TH/MM3 (4.0-11.0)
[2017-06-02 05:19] LABS: BICARBONATE 29.6 MEQ/L (21.0-32.0); CREATININE 0.72 MG/DL (0.60-1.30)
[2017-06-02] MEDS: METHOCARBAMOL 500 MG TAB PO SCH (05:42)
--- NOTE | 2017-06-02 06:27 | RADRPT ---
EXAM DATE/TIME: 06/02/2017 05:36 [facility] COMPARISON: CHEST SINGLE AP, June 01, 2017, 7:54. INDICATIONS : Shortness of breath. MEDICAL HISTORY : None. SURGICAL HISTORY : Appendectomy. Colon resection. Right shoulder. ENCOUNTER: Subsequent ACUITY: 2 days PAIN SCORE: Non-responsive. LOCATION: Bilateral chest FINDINGS: Stable left apical pleural opacity with mild right lower lung zone airspace disease. Cardiomediastin contours are stable. Remainder of exam is unchanged. CONCLUSION: 1. Stable left apical pleural thickening/effusion. 2. Stable mild right lower lung zone airspace disease, likely atelectasis. Lennox Rousseau MD on June 02, 2017 at 6:24 Board Certified Radiologist. This report was verified electronically.
[2017-06-02] MEDS ORDERED: PERC7.5T13 PO (06:40)
[2017-06-02] MEDS ORDERED: ROBA500T PO (06:40)
[2017-06-02] MEDS: RESP: ALBUTEROL 2.5 MG/IPRATROPIUM 0.5 MG NEB (SCH) NEB ×4 (08:31→20:46)
[2017-06-02] MEDS: LIDOCAINE HCL 5% PATCH T-DERMAL SCH (10:06)
[2017-06-02] MEDS: DIAZEPAM 2 MG TAB PO SCH ×3 (10:07→20:34)
[2017-06-02] MEDS: DOCUSATE SODIUM 50 MG/SENNA 8.6 MG TAB PO SCH ×2 (10:07→20:37)
--- NOTE | 2017-06-02 12:26 | HHI.DS ---
Discharge Summary Admission Date May 31, 2017 at 15:57 Discharge Date: Jun 02, 2017 Admitting Diagnosis left c7-T2 transvers process fx, left pneumothorax, left zygomatic a (1) Fall, initial encounter ICD Codes: W19.XXXA - Unspecified fall, initial encounter Diagnosis: Principal Status: Acute (2) Rib fractures ICD Codes: S22.39XA - Fracture of one rib, unspecified side, initial encounter for closed fracture Status: Acute (3) T12 compression fracture ICD Codes: S22.080A - Wedge compression fracture of T11-T12 vertebra, initial encounter for closed fracture Status: Acute (4) Separation of left acromioclavicular joint ICD Codes: S43.102A - Unspecified dislocation of left acromioclavicular joint, initial encounter Status: Acute (5) Traumatic compression fracture of T9 thoracic vertebra ICD Codes: S22.070A - Wedge compression fracture of T9-T10 vertebra, initial encounter for closed fracture Status: Acute Brief History S/P Trauma: Fall CBC/BMP: 06/02/17 0359 06/02/17 0359 Significant Findings Laboratory Tests Test 05/31/17 20:51 06/01/17 03:28 06/02/17 03:59 Neutrophils (%) (Auto) 72.4 % (16.0-70.0) Albumin 3.3 GM/DL (3.4-5.0) Calcium Level 8.0 MG/DL (8.5-10.1) 8.0 MG/DL (8.5-10.1) Aspartate Amino Transf (AST/SGOT) 111 U/L (15-37) Alanine Aminotransferase (ALT/SGPT) 80 U/L (12-78) Anion Gap 4 MEQ/L (5-15) 4 MEQ/L (5-15) Red Blood Count 4.49 MIL/MM3 (4.50-5.90) Platelet Count 142 TH/MM3 (150-450) Eosinophils (%) (Auto) 4.5 % (0.0-4.0) Imaging Last Impressions Chest X-Ray 06/02/17 0600 Signed Impressions: Service Date/Time: June 05:36 - CONCLUSION: 1. Stable left apical pleural thickening/effusion. 2. Stable mild right lower lung zone airspace disease, likely atelectasis. Lennox Rousseau MD Cervical Spine CT 05/31/17 1827 Signed Impressions: Service Date/Time: Wednesday, May 31, 2017 19:08 - CONCLUSION: 1. Mild degenerative changes as described above. 2. Old spinous process fracture C7 Keon Phillips MD Thoracic Spine MRI 05/31/17 1313 Signed Impressions: Service Date/Time: Wednesday, May 31, 2017 15:01 - CONCLUSION: 1. Mild compression fracture deformity of the T9 vertebral body with trabecular distortion and diffuse patchy marrow edema. There is paraspinous soft tissue swelling. There is no definite retropulsion. Fracture of the posterior left, and ninth ribs with edema. 2. Subtle fracture deformity involving the T12 vertebral body with subtle marrow edema no cortical distortion or paraspinous soft tissue swelling. 3. Multiple apparent left posterior rib fractures involving the third , fifth and eighth ribs with edema in the ribs and edema in the adjacent soft tissue musculature. A chest CT is recommended for further evaluation. Small amount of left pleural fluid. Kadeem Villanueva MD Shoulder X-Ray 05/31/173 Signed Impressions: Service Date/Time: Wednesday, May 31, 2017 14:00 - CONCLUSION: Soft tissue swelling with a.c. separation. Karson Watkins MD Cervical Spine MRI 05/31/173 Signed Impressions: Service Date/Time: Wednesday, May 31, 2017 15:01 - CONCLUSION: 1. Mild disc bulges at C5-6 and C6-7 levels. 2. No compression deformity or spondylolisthesis. 3. Mild degenerative changes C5-6 and C6-7 levels. Karson Watkins MD Thoracic Spine CT 05/31/17 0000 Signed Impressions: Service Date/Time: Wednesday, May 31, 2017 19:16 - CONCLUSION: 1. Transverse process fractures from T1-T7 on the left. 2. Slight sclerosis in the T9 vertebral body corresponding to the marrow edema seen on MRI without evidence of retropulsion. Keon Phillips MD PE at Discharge GENERAL: 46 year old well-nourished male OOB in chair with TLSO brace on. SKIN: Warm and dry. HEAD:Normocephalic. ENT: No nasal bleeding or discharge. Mucous membranes pink and moist. NECK: Trachea midline. No JVD. CARDIOVASCULAR: Regular rate and rhythm. RESPIRATORY: No accessory muscle use. Clear and diminished to auscultation. Breath sounds equal bilaterally. GASTROINTESTINAL: Abdomen soft, non-tender, nondistended. + BS MUSCULOSKELETAL: Extremities without cyanosis, or edema. MAEW, + perfused NEUROLOGICAL: Awake and alert. Normal speech. Hospital Course [place]: Elevated in a bucket truck cutting trees and fell approximately 15 feet striking his face on the ground. No LOC. Transferred for Trauma services. INJURIES: LEFT rib fxs (3,5,9) LEFT MARITZA/PTX LEFT pulmonary contusion LEFT shoulder AC separation C7, T1, T2 transverse process fxs T9 compression fx (non-op) T12 vertebral body fx (non-op) PMHx: Tobacco use, Crohn's disease, PSA LEFT rib fxs, LEFT MARITZA/PTX, LEFT pulmonary contusion Supportive care Pulmonary toileting Pain control CXR today shows stable left apical effusion and atelectasis OOB Tobacco cessation LEFT shoulder AC separation Orthopedics consulted Non-operative management WBAT F/U outpatient T9 compression fx, T12 vertebral body fx, C7, T1, T2 transverse process fxs Neurosurgery consulted Non-op Pain control OOB with TLSO brace No heavy lifting F/U outpatient F/U with PCP in 1 week Plan of care d/w patient and RN at bedside. Collaborating Trauma MD agrees with plan. Plan to DC patient home later today if pain better controlled. Pt Condition on Discharge: Stable Discharge Disposition: Discharge Home Discharge Instructions DIET: Follow Instructions for: As Tolerated, No Restrictions Activities you can perform: Full Weight Bearing Activities to Avoid: Concussion Sports, Contact Sports, Lifting/Bending, Strenuous Activity Other Activity Instructions: TLSO brace when out of bed. Attending Statement The exam, history, and the medical decision-making described in the above note were completed with the assistance of the mid-level provider. I reviewed and agree with the findings presented. I attest that I had a [id number] encounter with the patient on the same day, and personally performed and documented my assessment and findings in the medical record. Helen López Jun 02, 2017 12:26 Dennis Iqbal MD Jun 04, 2017 12:55
[2017-06-02] MEDS: MORPHINE SULFATE 4 MG/ML INJ IV PUSH PRN ×2 (12:52→23:02)
--- NOTE | 2017-06-02 16:54 | HHI.NSPN ---
(Karson Hoover) History Chief Complaint: thoracic spine pain. 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 He states he hit his head but denies loss of consciousness. His main complaint is lower cervical/thoracic area pain and lower thoracic level pain, but more significant left anterior chest wall and left shoulder area pain. He denies any numbness or paresthesias in the upper or lower extremities. He was initially taken to [facility] in [place] and a CT scan of the head obtained was negative for any intracranial injury with a nondisplaced left zygomatic arch fracture. He was also found to have left C7, T1 and T2 transverse process fractures with a maintained alignment of the cervicothoracic spine. On the CT of the chest, he was noted to have some thoracic vertebral fractures along with pneumothorax and was transferred to [facility] trauma surgery service for further management and the neurosurgery service has been consulted for the thoracic fractures. He denies any shortness of breath. 06/01/17: Pt complains of thoracic pain and left rib pain but controlled with current medications. He is being compliant with his TLSO brace. 06/02/17: Pt awake and alert. Sitting up in chair. Complains of with movement pain in back radiating through chest to front, only occurs with movement. He states he will be compliant with the brace. (Karson Hoover) Review of Systems General: Negative for: fever, chills, insomnia Respiratory: Negative for: shortness of breath, cough, sputum Cardiovascular: Positive for: chest pain Gastrointestinal: Negative for: nausea, vomitting, diarrhea, constipation ( Karson Hoover) Exam Results Vital Signs Date Time Temp Pulse Resp B/P (MAP) Pulse Ox O2 Delivery O2 Flow Rate FiO2 06/02/17 12:00 98.2 72 18 130/76 (94) 100 06/01/17 19:58 21 06/01/17 12:29 Nasal Cannula 3.00 Intake and Output 06/02/17 06/02/17 06/03/17 08:00 16:00 00:00 Intake Total 680 ml Output Total 1100 ml Balance -420 ml (Karson Hoover) Physical Examination General: Pt sitting up in chair with TLSO brace on. Eyes: Pupils equal sclera anicteric. Resp: CTA bilaterally. He is on a breathing treatment currently. Heart: NSR no murmurs Abd: TLSO brace on sitting up. Skin: No cyanosis or erythema Muscle: Moves all 4 extremities with good strength. Sitting up with TLSO brace on. Neuro: Pt awake and alert. Follows commands well. Speech clear and appropriate. Sensation intact in extremities. (Karson Hoover) Lab, Micro, Other Results Last Impressions Chest X-Ray 06/02/17 0600 Signed Impressions: Service Date/Time: June 05:36 - CONCLUSION: 1. Stable left apical pleural thickening/effusion. 2. Stable mild right lower lung zone airspace disease, likely atelectasis. Lennox Rousseau MD Cervical Spine CT 05/31/171826 Signed Impressions: Service Date/Time: Wednesday, May 31, 2017 19:08 - CONCLUSION: 1. Mild degenerative changes as described above. 2. Old spinous process fracture C7 Keon Phillips MD Thoracic Spine MRI 05/31/173 Signed Impressions: Service Date/Time: Wednesday, May 31, 2017 15:01 - CONCLUSION: 1. Mild compression fracture deformity of the T9 vertebral body with trabecular distortion and diffuse patchy marrow edema. There is paraspinous soft tissue swelling. There is no definite retropulsion. Fracture of the posterior left, and ninth ribs with edema. 2. Subtle fracture deformity involving the T12 vertebral body with subtle marrow edema no cortical distortion or paraspinous soft tissue swelling. 3. Multiple apparent left posterior rib fractures involving the third , fifth and eighth ribs with edema in the ribs and edema in the adjacent soft tissue musculature. A chest CT is recommended for further evaluation. Small amount of left pleural fluid. Kadeem Villanueva MD Shoulder X-Ray 05/31/17 1313 Signed Impressions: Service Date/Time: Wednesday, May 31, 2017 14:00 - CONCLUSION: Soft tissue swelling with a.c. separation. Karson Watkins MD Cervical Spine MRI 05/31/17 1313 Signed Impressions: Service Date/Time: Wednesday, May 31, 2017 15:01 - CONCLUSION: 1. Mild disc bulges at C5-6 and C6-7 levels. 2. No compression deformity or spondylolisthesis. 3. Mild degenerative changes C5-6 and C6-7 levels. Karson Watkins MD Thoracic Spine CT 05/31/17 0000 Signed Impressions: Service Date/Time: Wednesday, May 31, 2017 19:16 - CONCLUSION: 1. Transverse process fractures from T1-T7 on the left. 2. Slight sclerosis in the T9 vertebral body corresponding to the marrow edema seen on MRI without evidence of retropulsion. Keon Phillips MD Laboratory Tests Test 06/02/17 03:59 White Blood Count 5.9 TH/MM3 Red Blood Count 4.49 MIL/MM3 Hemoglobin 13.9 GM/DL Hematocrit 40.3 % Mean Corpuscular Volume 89.9 FL Mean Corpuscular Hemoglobin 30.9 PG Mean Corpuscular Hemoglobin Concent 34.4 % Red Cell Distribution Width 13.6 % Platelet Count 142 TH/MM3 Mean Platelet Volume 8.7 FL Neutrophils (%) (Auto) 64.2 % Lymphocytes (%) (Auto) 23.2 % Monocytes (%) (Auto) 7.6 % Eosinophils (%) (Auto) 4.5 % Basophils (%) (Auto) 0.5 % Neutrophils # (Auto) 3.8 TH/MM3 Lymphocytes # (Auto) 1.4 TH/MM3 Monocytes # (Auto) 0.4 TH/MM3 Eosinophils # (Auto) 0.3 TH/MM3 Basophils # (Auto) 0.0 TH/MM3 CBC Comment DIFF FINAL Differential Comment Blood Urea Nitrogen 9 MG/DL Creatinine 0.72 MG/DL Random Glucose 100 MG/DL Calcium Level 8.0 MG/DL Sodium Level 138 MEQ/L Potassium Level 3.6 MEQ/L Chloride Level 104 MEQ/L Carbon Dioxide Level 29.6 MEQ/L Anion Gap 4 MEQ/L Estimat Glomerular Filtration Rate 118 ML/MIN 06/02/17 06/02/17 06/03/17 15:00 23:00 07:00 # Bowel Movements 1 (Karson Hoover) Medical Decision Making Impression and Plan 1. Mild compression fracture along the T9 vertebral body as well as T12 vertebral body without any retropulsion. 2. Left C7, T1 and T2 transverse process fractures. 3. Left multiple rib fractures with possible small pneumothorax/pleural effusion. 4. Polysubstance abuse. PLAN The patient does not require any neurosurgical intervention at this point. Continue with TLSO brace for his T9 and T12 fractures The transverse process fractures involving the C7-T2 levels are stable injuries and do not require any intervention either. OOB with PT with brace on prior to sitting. Follow up in office in 6 weeks with AP and lateral thoracic x-rays prior to visit. Advised pt not to smoke or take any antiinflammatory medication during recovery or risk poor healing. Also discussed being compliant with TLSO brace use and he states he will he wants to get better. (Karson Hoover) Attending Statement The exam, history, and the medical decision-making described in the above note were completed with the assistance of the mid-level provider. I reviewed and agree with the findings presented. I attest that I had a [id number] encounter with the patient on the same day, and personally performed and documented my assessment and findings in the medical record. (Franky Araiza MD) Karson Hoover Jun 02, 2017 16:54 Franky Araiza MD Jun 03, 2017 07:55
[2017-06-02] MEDS: SODIUM CHLORIDE 0.9% FLUSH 10 ML FLUSH IV FLUSH PRN (23:02)
[2017-06-02] MEDS ORDERED: PERI PO (23:17)
[2017-06-03 00:43] VITALS: BP 130/85; PULSE 83; RESP 15; TEMP 98.5; O2SAT 96
[2017-06-03] MEDS: CHLORHEXIDINE GLUCONATE 2 % 1 PACK (2 CLOTHS) TOP SCH (04:00)
[2017-06-03] MEDS: DIAZEPAM 2 MG TAB PO SCH ×3 (05:11→20:44)
[2017-06-03 08:00] VITALS: BP 124/82; PULSE 75; RESP 16; TEMP 98.1; O2SAT 96
[2017-06-03] MEDS: RESP: ALBUTEROL 2.5 MG/IPRATROPIUM 0.5 MG NEB (SCH) NEB ×4 (08:00→19:33)
[2017-06-03] MEDS ORDERED: IBUP-232 PO (09:34)
--- NOTE | 2017-06-03 09:41 | HHI.NSPN ---
(Karson Hoover) History Chief Complaint: thoracic spine pain. 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 He states he hit his head but denies loss of consciousness. His main complaint is lower cervical/thoracic area pain and lower thoracic level pain, but more significant left anterior chest wall and left shoulder area pain. He denies any numbness or paresthesias in the upper or lower extremities. He was initially taken to [facility] in [place] and a CT scan of the head obtained was negative for any intracranial injury with a nondisplaced left zygomatic arch fracture. He was also found to have left C7, T1 and T2 transverse process fractures with a maintained alignment of the cervicothoracic spine. On the CT of the chest, he was noted to have some thoracic vertebral fractures along with pneumothorax and was transferred to [facility] trauma surgery service for further management and the neurosurgery service has been consulted for the thoracic fractures. He denies any shortness of breath. 06/01/17: Pt complains of thoracic pain and left rib pain but controlled with current medications. He is being compliant with his TLSO brace. 06/02/17: Pt awake and alert. Sitting up in chair. Complains of with movement pain in back radiating through chest to front, only occurs with movement. He states he will be compliant with the brace. 06/03/17: Pt awake and alert. Resting in bed. He complains of pain radiating from back around ribs today with moving that is a sharp knife like pain. No sob. Pain is exacerbated with movement. (Karson Hoover) Review of Systems General: Negative for: fever, chills, insomnia Respiratory: Negative for: shortness of breath, cough, sputum Cardiovascular: Negative for: chest pain Gastrointestinal: Negative for: nausea, vomitting, diarrhea, constipation ( Karson Hoover) Exam Results Vital Signs Date Time Temp Pulse Resp B/P (MAP) Pulse Ox O2 Delivery O2 Flow Rate FiO2 06/03/17 08:00 98.1 75 16 124/82 (96) 96 06/01/17 19:58 21 06/01/17 12:29 Nasal Cannula 3.00 Intake and Output 06/03/17 06/03/17 06/04/17 08:00 16:00 00:00 Output Total 400 ml Balance -400 ml (Karson Hoover) Physical Examination General: Pt resting in bed with TLSO brace on. Eyes: Pupils equal sclera anicteric. Resp: CTA bilaterally. Heart: NSR no murmurs Abd: Soft positive bs. Skin: No cyanosis or erythema Muscle: Moves all 4 extremities with good strength. Pt being compliant with TLSO brace. Neuro: Pt awake and alert. Follows commands well. Speech clear and appropriate. Sensation intact in extremities. (Karson Hoover) Lab, Micro, Other Results Last Impressions Chest X-Ray 06/02/17 0600 Signed Impressions: Service Date/Time: June 05:36 - CONCLUSION: 1. Stable left apical pleural thickening/effusion. 2. Stable mild right lower lung zone airspace disease, likely atelectasis. Lennox Rousseau MD Cervical Spine CT 05/31/17 1827 Signed Impressions: Service Date/Time: Wednesday, May 31, 2017 19:08 - CONCLUSION: 1. Mild degenerative changes as described above. 2. Old spinous process fracture C7 Keon Phillips MD Thoracic Spine MRI 05/31/17 1313 Signed Impressions: Service Date/Time: Wednesday, May 31, 2017 15:01 - CONCLUSION: 1. Mild compression fracture deformity of the T9 vertebral body with trabecular distortion and diffuse patchy marrow edema. There is paraspinous soft tissue swelling. There is no definite retropulsion. Fracture of the posterior left, and ninth ribs with edema. 2. Subtle fracture deformity involving the T12 vertebral body with subtle marrow edema no cortical distortion or paraspinous soft tissue swelling. 3. Multiple apparent left posterior rib fractures involving the third , fifth and eighth ribs with edema in the ribs and edema in the adjacent soft tissue musculature. A chest CT is recommended for further evaluation. Small amount of left pleural fluid. Kadeem Villanueva MD Shoulder X-Ray 05/31/17 1313 Signed Impressions: Service Date/Time: Wednesday, May 31, 2017 14:00 - CONCLUSION: Soft tissue swelling with a.c. separation. Karson Watkins MD Cervical Spine MRI 05/31/17 1313 Signed Impressions: Service Date/Time: Wednesday, May 31, 2017 15:01 - CONCLUSION: 1. Mild disc bulges at C5-6 and C6-7 levels. 2. No compression deformity or spondylolisthesis. 3. Mild degenerative changes C5-6 and C6-7 levels. Karson Watkins MD Thoracic Spine CT 05/31/17 0000 Signed Impressions: Service Date/Time: Wednesday, May 31, 2017 19:16 - CONCLUSION: 1. Transverse process fractures from T1-T7 on the left. 2. Slight sclerosis in the T9 vertebral body corresponding to the marrow edema seen on MRI without evidence of retropulsion. Keon Phillips MD (Karson Hoover) Medical Decision Making Impression and Plan 1. Mild compression fracture along the T9 vertebral body as well as T12 vertebral body without any retropulsion. 2. Left C7, T1 and T2 transverse process fractures. 3. Left multiple rib fractures with possible small pneumothorax/pleural effusion. 4. Polysubstance abuse. PLAN The patient does not require any neurosurgical intervention at this point. Continue with TLSO brace for his T9 and T12 fractures The transverse process fractures involving the C7-T2 levels are stable injuries and do not require any intervention either. OOB with PT with brace on prior to sitting. Follow up in office in 6 weeks with AP and lateral thoracic x-rays prior to visit. Advised pt not to smoke or take any antiinflammatory medication during recovery or risk poor healing. Also discussed being compliant with TLSO brace use and he states he will he wants to get better. Placed pt on Neurontin 300mg bid. Advised pt can take time to work and can cause side effects such as sedation. Will monitor. (Karson Hoover) Attending Statement The exam, history, and the medical decision-making described in the above note were completed with the assistance of the mid-level provider. I reviewed and agree with the findings presented. I attest that I had a [id number] encounter with the patient on the same day, and personally performed and documented my assessment and findings in the medical record. (Franky Araiza MD) Karson Hoover Jun 03, 2017 09:41 Franky Araiza MD Jun 03, 2017 18:47
[2017-06-03] MEDS: LIDOCAINE HCL 5% PATCH T-DERMAL SCH (09:46)
[2017-06-03] MEDS: DOCUSATE SODIUM 50 MG/SENNA 8.6 MG TAB PO SCH ×2 (09:47→20:45)
[2017-06-03 12:00] VITALS: BP 139/90; PULSE 81; RESP 16; TEMP 98.2; O2SAT 96
--- NOTE | 2017-06-03 12:23 | HHI.CCPN ---
Subjective Brief History [place]: This is a 46 -year-old male who fell from approximately 15 ft height. Patient initially transfer to another hospital and then came to us as a transfer to trauma center Arrival patient is awake and alert and oriented INJURIES: ? LEFT zygomatic arch fx LEFT shoulder AC seperation LEFT rib fx (3,5,9) LEFT MARITZA/PTX LEFT pulmonary contusion C7, T1, T2 transverse process fxs T9 compression fx (non-op) T12 vertebral body fx (non-op) PMHx: Tobacco use, crohnes dx, PSA Patient was evaluated by trauma surgeon neurosurgeon and medical multifocal button grinder and placed in the unit for observation 24 Hour Review/Hospital Course 06/01/2017 Patient is awake alert and oriented Neurologically fully intact complaining about pain in the lower back Bilateral good breath sounds and good pulmonary expansion Chest x-ray does not reveal any residual pneumothorax left Abdomen soft active bowel sounds no masses no rebound or guarding no signs of abdominal trauma Pelvis is stable. 06/03/2017 PTD: 3 Patient lying in bed. No distress noted. Visit her at bedside. Patient does not want to be discharged. "Not with the night I had last night. I had a bad night." "I have pain. It is hard for me to move." "It is not a spasm. It's a stabbing pain all the way through my chest." Pt is requesting assistance with his medications and transportation home. (Kriss Cardona) Objective Vital Signs Date Time Temp Pulse Resp B/P (MAP) Pulse Ox O2 Delivery O2 Flow Rate FiO2 06/03/17 08:00 98.1 75 16 124/82 (96) 96 06/01/17 19:58 21 06/01/17 12:29 Nasal Cannula 3.00 Intake and Output 06/03/17 06/03/17 06/04/17 08:00 16:00 00:00 Output Total 400 ml Balance -400 ml (Kriss Cardona) Result Diagram: 06/02/17 0359 06/02/17 0359 Imaging Last 48 hours Impressions Chest X-Ray 06/02/17 0600 Signed Impressions: Service Date/Time: June 05:36 - CONCLUSION: 1. Stable left apical pleural thickening/effusion. 2. Stable mild right lower lung zone airspace disease, likely atelectasis. Lennox Rousseau MD Objective Remarks GENERAL: This is a 46-year-old male, lying in bed. No distress noted. SKIN: Warm and dry. HEAD: Atraumatic. Normocephalic. EYES: PERRLA ENT: No nasal bleeding or discharge. Mucous membranes pink and moist. NECK: Trachea midline. No JVD. CARDIOVASCULAR: Regular rate and rhythm. RESPIRATORY: No accessory muscle use. Lungs are clear to auscultation. Breath sounds equal bilaterally. No distress or dyspnea. GASTROINTESTINAL: BS + x 4 quads. Abdomen soft, non-tender, nondistended. MUSCULOSKELETAL: Extremities without cyanosis, or edema. + peripheral pulses x 4 extremities. Warm with good capillary refill and sensation. MAEW. NEUROLOGICAL: Awake and alert. Normal speech and pattern. (Kriss Cardona) Urinary Catheter Assessment Urinary Catheter: No (Kriss Cardona) Vascular Central Line Catheter Vascular Central Line Catheter: No (Kriss Cardona) Assessment and Plan Assessment: (1) Rib fractures ICD Code: S22.39XA - Fracture of one rib, unspecified side, initial encounter for closed fracture Status: Acute (2) T12 compression fracture ICD Code: S22.080A - Wedge compression fracture of T11-T12 vertebra, initial encounter for closed fracture Status: Acute (3) Fall, initial encounter ICD Code: W19.XXXA - Unspecified fall, initial encounter Status: Acute (4) Separation of left acromioclavicular joint ICD Code: S43.102A - Unspecified dislocation of left acromioclavicular joint, initial encounter Status: Acute (5) Traumatic compression fracture of T9 thoracic vertebra ICD Code: S22.070A - Wedge compression fracture of T9-T10 vertebra, initial encounter for closed fracture Status: Acute Plan [place]: This is a 46-year-old male who sustained a fall. He fell from an elevated bucket truck where he was cutting trees. He fell approximately 15 feet striking his face on the ground. No LOC. He was transferred from an outside facility for trauma services INJURIES: ? LEFT zygomatic arch fx LEFT rib fx (3,5,9) LEFT MARITZA/PTX LEFT pulmonary contusion LEFT shoulder AC seperation C7, T1, T2 transverse process fxs T9 compression fx (non-op) T12 vertebral body fx (non-op) PMHx: Tobacco use, crohnes dx, PSA Procedures: Consults: CCM. Orthopedics. Neurosurgery. Case management. Diet: Regular diet. Tolerating po diet. Encourage good po intake with each meal. Pulmonary: Encourage good pulmonary toileting. IS and acapella at bedside and pt encouraged to use. Rationale for use explained to patient, and verbalized understanding. EZpap with nebs. PAIN Management: Oxycodone 5-10mg q 4h, Morphine 4mg q 3h. Neurontin 300 mg TID. Added Ibuprofen 600 mg q 8h. Lidoderm patch, , Valium 2mg q 6h (sched). Activity: OOB. PT and OT ordered (TLSO, ?WBAT LUE) GI prophylaxis: Not indicated at this time Bowel regimen: Malika-colace 2 tab, PRN Lactulose. LBM: / DVT prophylaxis: Mechanical VTE with SCDs. Chemical management with TBD. DC Planning: Case management consulted for assistance with final discharge disposition. Patient states he is homeless, and lives in the [facility]. He is asking for assistance with his medications, and transportation back to the location where he stays. Patient remains painful. Patient will stay one more night for pain control, and plan is for discharge tomorrow morning. Emotional support provided to patient and visitor at bedside and plan of care discussed. Discussed with RN at bedside. Discussed pt condition and plan of care with collaborating trauma surgeon. Patient is hemodynamically stable in the ICU, and has a transfer to the [facility] floor where management and care can be continued. The trauma team will round each day, and evaluate plan of care on a daily basis. LEFT rib fx (3,5,9) LEFT MARITZA/PTX LEFT pulmonary contusion O2 as needed Supportive care Aggressive pulmonary toileting Pain management Chest x-ray as needed PT and OT ordered Encourage out of bed LEFT shoulder AC separation Orthopedics consulted and assisting in management and care Pain management Sling if needed for comfort and support ? WBS LUE - clarify with orthopedics PT and OT ordered C7, T1, T2 transverse process fxs T9 compression fx (non-op) T12 vertebral body fx (non-op) Neurosurgery consulted and assisting in management and care Nonoperative management at this time Supportive care Pain management TLSO brace when out of bed PT and OT ordered Follow-up with neurosurgery outpatient - 6 wks Will need thoracic x-rays in 6 weeks (Kriss Cardona) Attestation The exam, history, and the medical decision-making described in the above note were completed with the assistance of the mid-level provider. I reviewed and agree with the findings presented. I attest that I had a [id number] encounter with the patient on the same day, and personally performed and documented my assessment and findings in the medical record. (Dennis Iqbal MD) Problem Qualifiers (1) Rib fractures: Qualified Codes: S22.42XA - Multiple fractures of ribs, left side, initial encounter for closed fracture (2) Separation of left acromioclavicular joint: Qualified Codes: S43.102A - Unspecified dislocation of left acromioclavicular joint, initial encounter (3) Traumatic compression fracture of T9 thoracic vertebra: Qualified Codes: S22.070A - Wedge compression fracture of t9-t10 vertebra, initial encounter for closed fracture Kriss Cardona Jun 03, 2017 12:23 Dennis Iqbal MD Jun 04, 2017 20:08
[2017-06-03] MEDS: GABAPENTIN 300 MG CAP PO SCH ×2 (12:37→20:45)
[2017-06-03] MEDS: IBUPROFEN 600 MG TAB PO SCH ×3 (12:41→20:45)
--- NOTE | 2017-06-03 13:41 | PD.ORT.PN ---
Subjective Subjective Remarks Patient comfortable. Pain controlled. Objective Vitals Vital Signs Date Time Temp Pulse Resp B/P (MAP) Pulse Ox O2 Delivery O2 Flow Rate FiO2 06/03/17 12:00 98.2 81 16 139/90 (106) 96 06/03/17 08:00 98.1 75 16 124/82 (96) 96 06/03/17 00:43 98.5 83 15 130/85 (100) 96 06/02/17 20:49 98 06/02/17 20:00 98.1 78 16 127/86 (100) 98 06/02/17 16:00 97.9 90 18 128/71 (90) 99 I/O 06/02/17 06/02/17 06/02/17 06/03/17 06/03/17 06/03/17 07:00 15:00 23:00 07:00 15:00 23:00 Intake Total 680 ml 720 ml Output Total 1100 ml 400 ml Balance -420 ml 720 ml -400 ml Intake Oral 480 ml 720 ml IV Total 200 ml Output Urine Total 1100 ml 400 ml # Voids 6 # Bowel Movements 0 2 Result Diagram: 06/02/17 0359 06/02/17 0359 Objective Remarks Left shoulder mild tenderness with direct palpation skin intact acceptable ROM distally motor, neuro, and sensory intact Assessment & Plan Problem List: (1) Separation of left acromioclavicular joint ICD Codes: S43.102A - Unspecified dislocation of left acromioclavicular joint, initial encounter Status: Acute Qualifiers: Qualified Codes: S43.102A - Unspecified dislocation of left acromioclavicular joint, initial encounter Assessment and Plan Continue conservative management Pain management Advised to listen to his symptoms. Advance as tolerated. Orthopedically stable for discharge F/U in [address] Vernon or YESENIA in office. Reji Rawls Jun 03, 2017 13:41
[2017-06-03 16:00] VITALS: BP 125/87; PULSE 77; RESP 16; TEMP 98; O2SAT 97
[2017-06-03 19:55] VITALS: BP 131/87; PULSE 102; RESP 21; TEMP 98.2; O2SAT 91
[2017-06-03] MEDS: SODIUM CHLORIDE 0.9% FLUSH 10 ML FLUSH IV FLUSH PRN (20:45)
[2017-06-04] VITALS: BP 119/78; PULSE 74; RESP 20; TEMP 98.2; O2SAT 95
[2017-06-04] MEDS: CHLORHEXIDINE GLUCONATE 2 % 1 PACK (2 CLOTHS) TOP SCH (00:48)
[2017-06-04 04:00] VITALS: BP 113/77; PULSE 68; RESP 20; TEMP 97.6; O2SAT 98
[2017-06-04] MEDS: DIAZEPAM 2 MG TAB PO SCH (05:29)
[2017-06-04] MEDS: IBUPROFEN 600 MG TAB PO SCH (05:29)
[2017-06-04 08:00] VITALS: BP 129/89; PULSE 62; RESP 16; TEMP 98; O2SAT 97
[2017-06-04] MEDS: RESP: ALBUTEROL 2.5 MG/IPRATROPIUM 0.5 MG NEB (SCH) NEB ×2 (08:00→11:54)
[2017-06-04] MEDS: DOCUSATE SODIUM 50 MG/SENNA 8.6 MG TAB PO SCH (09:00)
[2017-06-04] MEDS: GABAPENTIN 300 MG CAP PO SCH (09:43)
[2017-06-04] MEDS: LIDOCAINE HCL 5% PATCH T-DERMAL SCH (09:44)
--- NOTE | 2017-06-04 12:26 | HHI.DS ---
Discharge Summary Admission Date May 31, 2017 at 15:57 Discharge Date: Jun 04, 2017 Admitting Diagnosis left c7-T2 transvers process fx, left pneumothorax, left zygomatic a (1) Fall, initial encounter ICD Codes: W19.XXXA - Unspecified fall, initial encounter Diagnosis: Principal Status: Acute (2) Rib fractures ICD Codes: S22.39XA - Fracture of one rib, unspecified side, initial encounter for closed fracture Diagnosis: Principal Status: Acute (3) T12 compression fracture ICD Codes: S22.080A - Wedge compression fracture of T11-T12 vertebra, initial encounter for closed fracture Diagnosis: Principal Status: Acute (4) Separation of left acromioclavicular joint ICD Codes: S43.102A - Unspecified dislocation of left acromioclavicular joint, initial encounter Diagnosis: Principal Status: Acute (5) Traumatic compression fracture of T9 thoracic vertebra ICD Codes: S22.070A - Wedge compression fracture of T9-T10 vertebra, initial encounter for closed fracture Diagnosis: Principal Status: Acute Brief History S/P Trauma: Fall CBC/BMP: 06/02/17 0359 06/02/17 0359 Significant Findings Laboratory Tests Test 06/02/17 03:59 Red Blood Count 4.49 MIL/MM3 (4.50-5.90) Platelet Count 142 TH/MM3 (150-450) Eosinophils (%) (Auto) 4.5 % (0.0-4.0) Calcium Level 8.0 MG/DL (8.5-10.1) Anion Gap 4 MEQ/L (5-15) Imaging Last Impressions Chest X-Ray 06/02/17 0600 Signed Impressions: Service Date/Time: June 05:36 - CONCLUSION: 1. Stable left apical pleural thickening/effusion. 2. Stable mild right lower lung zone airspace disease, likely atelectasis. Lennox Rousseau MD Cervical Spine CT 05/31/17 1827 Signed Impressions: Service Date/Time: Wednesday, May 31, 2017 19:08 - CONCLUSION: 1. Mild degenerative changes as described above. 2. Old spinous process fracture C7 Keon Phillips MD Thoracic Spine MRI 05/31/17 1313 Signed Impressions: Service Date/Time: Wednesday, May 31, 2017 15:01 - CONCLUSION: 1. Mild compression fracture deformity of the T9 vertebral body with trabecular distortion and diffuse patchy marrow edema. There is paraspinous soft tissue swelling. There is no definite retropulsion. Fracture of the posterior left, and ninth ribs with edema. 2. Subtle fracture deformity involving the T12 vertebral body with subtle marrow edema no cortical distortion or paraspinous soft tissue swelling. 3. Multiple apparent left posterior rib fractures involving the third , fifth and eighth ribs with edema in the ribs and edema in the adjacent soft tissue musculature. A chest CT is recommended for further evaluation. Small amount of left pleural fluid. Kadeem Villanueva MD Shoulder X-Ray 05/31/17 1313 Signed Impressions: Service Date/Time: Wednesday, May 31, 2017 14:00 - CONCLUSION: Soft tissue swelling with a.c. separation. Karson Watkins MD Cervical Spine MRI 05/31/17 1313 Signed Impressions: Service Date/Time: Wednesday, May 31, 2017 15:01 - CONCLUSION: 1. Mild disc bulges at C5-6 and C6-7 levels. 2. No compression deformity or spondylolisthesis. 3. Mild degenerative changes C5-6 and C6-7 levels. Karson Watkins MD Thoracic Spine CT 05/31/17 0000 Signed Impressions: Service Date/Time: Wednesday, May 31, 2017 19:16 - CONCLUSION: 1. Transverse process fractures from T1-T7 on the left. 2. Slight sclerosis in the T9 vertebral body corresponding to the marrow edema seen on MRI without evidence of retropulsion. Keon Phillips MD PE at Discharge GENERAL: This is a 46-year-old male,OOB in a recliner chair. No distress noted. SKIN: Warm and dry. HEAD: Atraumatic. Normocephalic. EYES: PERRLA ENT: No nasal bleeding or discharge. Mucous membranes pink and moist. NECK: Trachea midline. No JVD. CARDIOVASCULAR: Regular rate and rhythm. RESPIRATORY: No accessory muscle use. Lungs are clear to auscultation. Breath sounds equal bilaterally. No distress or dyspnea. GASTROINTESTINAL: BS + x 4 quads. Abdomen soft, non-tender, nondistended. MUSCULOSKELETAL: TLSO brace in place. Extremities without cyanosis, or edema. + peripheral pulses x 4 extremities. Warm with good capillary refill and sensation. MAEW. NEUROLOGICAL: Awake and alert. Normal speech and pattern. Hospital Course [place]: This is a 46-year-old male who sustained a fall. He fell from an elevated bucket truck where he was cutting trees. He fell approximately 15 feet striking his face on the ground. No LOC. He was transferred from an outside facility for trauma services INJURIES: ? LEFT zygomatic arch fx LEFT rib fx (3,5,9) LEFT MARITZA/PTX LEFT pulmonary contusion LEFT shoulder AC seperation C7, T1, T2 transverse process fxs T9 compression fx (non-op) T12 vertebral body fx (non-op) PMHx: Tobacco use, crohnes dx, PSA Procedures: Consults: CCM. Orthopedics. Neurosurgery. Case management. The patient states he is ready to go home today. The patient is now tolerating a po diet. Eating and drinking well. Pain is being managed well with PO pain medications, and patient is being a provided with a script for pain meds upon discharge. (NO driving while taking narcotic pain medication enforced to patient.) Pt is having regular bowel movements, and have recommended to patient to continue with stool softeners while taking narcotic pain medications to prevent constipation. Pt has been participating in PT and OT while admitted at [place] and has been ambulating with their assistance and independently . No PT needs at home. All follow up appointments have been provided and discussed with the patient. It is recommended that the patient keeps all his follow up appointments for continued recovery. Case management has assisted the patient with obtaining his discharge medications. Patient's condition and plan of care discussed with collaborating trauma surgeon. He is agreeable to plan for discharge today. Therefore, the patient is stable to be safely discharged home from a trauma surgery standpoint. Thank you for allowing us to participate in his care. We wish Chip the best in his recovery. LEFT rib fx (3,5,9) LEFT MARITZA/PTX LEFT pulmonary contusion O2 as needed Supportive care Aggressive pulmonary toileting Pain management Chest x-ray as needed PT and OT ordered Encourage out of bed Follow-up with PCP and trauma clinic outpatient LEFT shoulder AC separation Orthopedics consulted and assisting in management and care Pain management Sling if needed for comfort and support PT and OT ordered Follow-up with orthopedics outpatient C7, T1, T2 transverse process fxs T9 compression fx (non-op) T12 vertebral body fx (non-op) Neurosurgery consulted and assisting in management and care Nonoperative management at this time Supportive care Pain management TLSO brace when out of bed PT and OT ordered Follow-up with neurosurgery outpatient - 6 wks Will need thoracic x-rays in 6 weeks Pt Condition on Discharge: Stable Discharge Disposition: Discharge Home Discharge Instructions DIET: Follow Instructions for: As Tolerated, No Restrictions Activities you can perform: Full Weight Bearing Activities to Avoid: Concussion Sports, Contact Sports, Lifting/Bending, Strenuous Activity Other Activity Instructions: TLSO brace when out of bed. Attending Statement The exam, history, and the medical decision-making described in the above note were completed with the assistance of the mid-level provider. I reviewed and agree with the findings presented. I attest that I had a [id number] encounter with the patient on the same day, and personally performed and documented my assessment and findings in the medical record. Kriss Cardona Jun 04, 2017 12:26 Dennis Iqbal MD Jun 04, 2017 13:05
== END 2017-06-04 12:13 | disposition home or self-care (01) | DRG 200 ==
LOC: NEPE 12:49 → NEDA 15:57 → N03A 19:37 → N03B 06-01 18:10
PROVIDERS: ADMIT Surgery; ATTEND Surgery
DX: S27.0XXA Traumatic pneumothorax, initial encounter (principal); S22.42XA Multiple fractures of ribs, left side, initial encounter for closed fracture; S22.019A Unspecified fracture of first thoracic vertebra, initial encounter for closed fracture; S12.600A Unspecified displaced fracture of seventh cervical vertebra, initial encounter for closed fracture; S27.321A Contusion of lung, unilateral, initial encounter; J90 Pleural effusion, not elsewhere classified; K50.90 Crohn's disease, unspecified, without complications; S02.40FA Zygomatic fracture, left side, initial encounter for closed fracture; S22.029A Unspecified fracture of second thoracic vertebra, initial encounter for closed fracture; S22.071A Stable burst fracture of T9-T10 vertebra, initial encounter for closed fracture; S22.080A Wedge compression fracture of T11-T12 vertebra, initial encounter for closed fracture; S30.1XXA Contusion of abdominal wall, initial encounter; S43.102A Unspecified dislocation of left acromioclavicular joint, initial encounter; R40.2413 Glasgow coma scale score 13-15, at hospital admission; F17.210 Nicotine dependence, cigarettes, uncomplicated; W17.89XA Other fall from one level to another, initial encounter; Y93.H2 Activity, gardening and landscaping; Z59.0 Homelessness
CPT/HCPCS: 71045; 72125; 72128; 72141; 72146; 73030; 80048; 80053; 85025; 87641; 94150; 94640; 94664; 94667; 94668; 96374; 96375; C9113; J0131; J1170; J2270; J2405; J7030; L0200; L0484